=== PATIENT | male | born 1960 | race Caucasian/White ===

== ENCOUNTER 2024-12-12 07:18 | Day surgery (SDC) | payer MEDICARE, BC ==
[2024-12-10 12:42] VITALS: BMI 27.1
[2024-12-12] MEDS ORDERED: Ketorolac Tromethamine 30 MG (1 mL) VIAL ONE (07:38)
[2024-12-12] MEDS ORDERED: Acetaminophen 500 MG TAB ONE (07:38)
[2024-12-12] MEDS ORDERED: CEFAZOLIN 2 GM VIAL ONE (08:05)
[2024-12-12] MEDS ORDERED: Bupivacaine/Epinephrine 0.25% 30 ML VIAL ONE (08:06)
[2024-12-12] MEDS ORDERED: Rocuronium Bromide 10 MG/ML (10ML VIAL) ONE (08:17)
[2024-12-12] MEDS ORDERED: Ondansetron PF 4 MG/2 ML Vial ONE (08:17)
[2024-12-12] MEDS ORDERED: PROPOFOL 20 ML ONE (08:18)
[2024-12-12] MEDS ORDERED: PHENYLEPHRINE-NS 100 MCG/ML 10 ML SYRINGE ONE (08:32)
[2024-12-12] MEDS ORDERED: SUGAMMADEX SODIUM 200 MG/2 ML VIAL ONE ×2 (08:32→10:20)
[2024-12-12] MEDS ORDERED: HYDROcodone/Acetaminophen 5/325 mg Tablet ONE (11:36)
== END 2024-12-12 12:12 | disposition home or self-care (01) ==
LOC: CSHSDC 07:18
PROVIDERS: ATTEND Specialist
PROC: 0WUF0JZ Supplement Abdominal Wall with Synthetic Substitute, Open Approach (ICD-10-PCS; principal; 2024-12-12)
DX: K42.9 Umbilical hernia without obstruction or gangrene (principal); Z98.890 Other specified postprocedural states
CPT/HCPCS: 49591; J1100; J1885; J2405; J2704; J3010; A6258; C1781